=== PATIENT | female | born 1970 | race Two or more races ===

== ENCOUNTER 2016-09-08 12:21 | Day surgery (SDC) | payer OTHER ==
[~2016-09-08] VITALS: Ht 160 cm; Wt 70.8 kg
[2016-09-08 14:19] VITALS: Ht 160 cm; Wt 70.8 kg
[2016-09-08] MEDS ORDERED: SERT-165 PO (14:36)
[2016-09-08] MEDS ORDERED: DOLU50TA PO (14:36)
[2016-09-08] MEDS ORDERED: ATAZ1TAB PO (14:36)
[2016-09-08] MEDS ORDERED: [UNRECOGNIZED DRUG - CODE] PO (14:36)
[2016-09-08] MEDS ORDERED: ONDA4TAB95 PO (14:36)
[2016-09-08] MEDS ORDERED: MULTI PO (14:36)
[2016-09-08] MEDS ORDERED: FENO145T19 PO (14:36)
[2016-09-08] MEDS ORDERED: HYOS0.1212 SL (14:36)
[2016-09-08] MEDS ORDERED: FOLI-49 PO (14:36)
[2016-09-08] MEDS ORDERED: LIDO20SO19 MM (14:36)
[2016-09-08] MEDS ORDERED: HYDR-3011 PO (14:36)
[2016-09-08] MEDS ORDERED: TRAZ50TA18 PO (14:36)
[2016-09-08] MEDS ORDERED: [UNRECOGNIZED DRUG - OTHER] (14:36)
[2016-09-08] MEDS ORDERED: ERGO400T4 PO (14:36)
[2016-09-08] MEDS ORDERED: OMEP40CA6 PO (14:36)
[2016-09-08] MEDS ORDERED: [UNRECOGNIZED DRUG - CODE] MM (14:36)
[2016-09-08] MEDS ORDERED: LISI-313 PO (14:36)
[2016-09-08] MEDS ORDERED: HYDR-3027 PO (14:36)
[2016-09-08] MEDS ORDERED: METO-429 PO (14:36)
[2016-09-08 14:58] VITALS: BP 122/81; PULSE 67; RESP 20
[2016-09-08] MEDS ORDERED: MIDAZOLAM 1 MG/ML 2 ML INJ ONE (15:57)
[2016-09-08] MEDS ORDERED: FENTAnyl 50 MCG/ML VIAL ONE (15:57)
[2016-09-08] MEDS ORDERED: PROPOFOL 20 ML ONE (15:57)
--- NOTE | 2016-09-10 10:09 | GILP ---
DATE OF PROCEDURE: 09/08/2016 PROCEDURE: Esophagogastroduodenoscopy with biopsies. SURGEON: Elisa Collins MD BRIEF HISTORY AND INDICATIONS: The patient is being evaluated for abdominal pain. PREMEDICATION: Monitored anesthesia care by anesthesiologist. INSTRUMENT USED: Olympus panendoscope. TECHNIQUE: After informed consent, with the patient/relatives understanding the procedure, its indic ations, potential risks and complications, including but not limited to: allergic reaction, bleeding , perforation or infection, and after all pertinent questions were answered to the patients satisfac tion, the patient/relatives signed witnessed informed consent. Following this, premedication was ad ministered slowly IV push under careful cardiovascular and respiratory monitoring with pulse oximetr y, automatic blood pressure and products mechanical design engineer. Once the sedative effect was achieved the patient was place in the left lateral decubitus, the panendoscope was introduced and advanced under visual contr ol. Careful examination of the upper gastrointestinal tract, both on insertion as well as withdrawal of the instrument disclosed the following findings: ESOPHAGUS: The distal esophagus shows erythema and edema of the mucosa with superficial erosion. STOMACH: Upon entrance to the stomach, air was insufflated, the gastric smith distended normally. There is erythema and edema of the mucosa of a moderate degree. Biopsies were obtained to rule out H. pylori infection. PYLORUS: The pylorus appears patent and within normal limits, with no evidence of gastric outlet obs truction. DUODENUM: The duodenal mucosa was carefully examined in the duodenal bulb as well as the second por tion of the duodenum and appears unremarkable with no evidence of duodenitis, ulcer or neoplasm. The instrument was then withdrawn, the patient tolerated the procedure well and was transfer out of the endoscopy suite awake, and in good condition to continue recovery under observation IMPRESSION: 1. Erosive esophagitis. 2. Gastritis, rule out Helicobacter pylori infection. PLAN: The patient will be treated with PPIs. Pathology will be reviewed as soon as available. Fur ther recommendation will depend on patient's clinical course as well as review of biopsies. Dictated By: URBANO COLLINS MS/ROMA Conf#: [id number] DID#: [id number] CC: URBANO COLLINS;*EndCC*
--- NOTE | 2016-09-10 10:15 | GILP ---
DATE OF PROCEDURE: 09/08/2016 PROCEDURE: Colonoscopy with polypectomy. PREMEDICATION: Monitored anesthesia care by anesthesiologist. SURGEON: Urbano Collins MD. INSTRUMENT USED: Olympus colonoscope. PREPARATION: Adequate. TECHNIQUE: After informed consent, with the patient/relatives understanding the procedure, its indic ations potential risks and complications, including but not limited to: allergic reaction, bleeding, perforation, infection, missed lesions and after all pertinent questions were answered to the patie nt's satisfaction, the patient/relatives signed the witnessed informed consent. Following this, premedication was administered slowly IV push by under careful cardiovascular and re spiratory monitoring with pulse oximetry, automatic blood pressure and residential monitor. Once the sedativ e effect was achieved, the patient was placed in the left lateral decubitus position, digital rectal examination was performed. The colonoscope was then introduced and advanced under visual control th roughout all segments of the colon including: the rectum, sigmoid, descending colon, splenic flexure , transverse colon, hepatic flexure, ascending colon and finally reaching the cecum which was clearl y identified by transillumination, finger indentation and the ileocecal valve. Careful examination o f the mucosa of the lower gastrointestinal tract both on insertion as well as withdrawal of the inst rument disclosed the following findings: Rectal Examination: No evidence of perirectal disease, no masses. Colonic Mucosa: The colonic mucosa is remarkable for mild diverticulosis on the left side of the co marty. An 8 mm polyp was noted in the sigmoid colon which was snared and retrieved upon completion of examination and withdrawal of instrument. The ileocecal valve was reached and appears unremarkable. The instrument was withdrawn. On withdrawal of the instrument, no additional abnormalities are note d with the exception of moderate size internal hemorrhoids. The patient tolerated the procedure well and was transferred out of the Endoscopy Suite awake and in good condition to continue recovery under observation. IMPRESSION: 1. Mild diverticulosis. 2. An 8 mm pedunculated polyp in the sigmoid colon, snared and retrieved. 3. Moderate sized internal hemorrhoids. PLAN: The patient will follow up as an outpatient. Pathology will be reviewed as soon as available . Further recommendation will depend on her clinical course as well as review of biopsies. Surveil lizbet colonoscopy in 5 years is recommended. Annual Hemoccult stool testing is also recommended. Dictated By: URBANO COLLINS MS/NTS Conf#: [id number] [facility]#: [id number]
== END 2016-09-08 18:25 | disposition home or self-care (01) ==
LOC: GIL 12:21
PROVIDERS: ATTEND Internal Medicine Gastroenterology
DX: K29.50 Unspecified chronic gastritis without bleeding (principal); K20.9 Esophagitis, unspecified; D12.5 Benign neoplasm of sigmoid colon; K64.8 Other hemorrhoids; K57.30 Diverticulosis of large intestine without perforation or abscess without bleeding; I10 Essential (primary) hypertension; E78.00 Pure hypercholesterolemia, unspecified; M81.0 Age-related osteoporosis without current pathological fracture; F32.9 Major depressive disorder, single episode, unspecified; F41.9 Anxiety disorder, unspecified
CPT/HCPCS: 43239; 43251; 88305; 88312; J2250; J3010; Z7610

== ENCOUNTER 2018-09-14 15:46 | Day surgery (SDC) | payer OTHER ==
[~2018-09-14] VITALS: Ht 160 cm; Wt 81.2 kg
[2018-09-14] VITALS (17 sets, daily range): BP systolic 100–137; BP diastolic 67–94; PULSE 61–90; RESP 10–20; Ht 160 cm; Wt 81.2 kg
[~2018-09-14 15:46] MED LIST: ATAZ1TAB PO; DOLU50TA PO; ERGO400T4 PO; FENO145T37 PO; FOLI-49 PO; HYDR-3027 PO; HYDR-843 PO; HYOS0.1297 SL; LIDO20SO19 MM; LISI-313 PO; METO-429 PO; MULTI PO; OMEP40CA6 PO; ONDA4TAB95 PO; SERT-165 PO; TRAZ-111 PO; [UNRECOGNIZED DRUG - CODE] MM; [UNRECOGNIZED DRUG - CODE] PO; [UNRECOGNIZED DRUG - OTHER]
--- NOTE | 2018-09-14 15:55 | HPN ---
Date/Time of Note Date/Time of Note DATE: 09/14/18 TIME: 15:55 Interval H&P Admission Note Pt. seen H&P reviewed: No system changes GARY MARQUEZ Sep 14, 2018 15:55
[2018-09-14] MEDS ORDERED: FENTAnyl 50 MCG/ML VIAL ONE ×2 (16:34→18:11)
[2018-09-14] MEDS ORDERED: CEFAZOLIN 1 GM INJ ONE (16:34)
[2018-09-14] MEDS ORDERED: ROPIVACAINE 0.5 % 30 ML VIAL ONE (16:34)
[2018-09-14] MEDS ORDERED: PROPOFOL 20 ML ONE (16:34)
[2018-09-14] MEDS ORDERED: MIDAZOLAM 1 MG/ML 2 ML INJ ONE (16:34)
[2018-09-14] MEDS ORDERED: ALEN40TA2 PO (16:53)
[2018-09-14] MEDS ORDERED: TOPI100T11 PO (16:53)
--- NOTE | 2018-09-14 16:59 | PREAC ---
Date/Time of Note Date/Time of Note DATE: 09/14/18 TIME: 16:56 Anesthesia Eval and Record Evaluation Time Pre-Procedure Interview DATE: 09/14/18 TIME: 16:56 Age 48 Sex female NPO: 8 hrs Preoperative diagnosis Left Distal Radius Fracture Planned procedure Left Distal Radius ORIF and Carpal tunnel release Past Medical History Past Medical History: Includes Cardio: HTN, Dyslipidemia Pulm: Smoking Hx (2 cigarette/day) GI: GERD Infection(s): HIV Surgery & Anesthesia Issues No known issue Meds Anticoagulation: No Beta Noble within 24 hr: No Reason Beta Noble not given: Pt. not on B-Noble Reported Medications Topiramate* (Topiramate*) 100 Mg Tablet, 100 MG PO QPM, TAB 09/14/18 Alendronate Sodium* (Alendronate Sodium*) 40 Mg Tablet, 70 MG PO WEEKLY, #30 TAB 09/14/18 Hydroxyzine Hcl* (Hydroxyzine Hcl*) 25 Mg Tablet, 25 MG PO TID, #30 TAB 09/08/16 Hyoscyamine Sulfate* (Hyoscyamine Sulfate*) 0.125 Mg Tab.subl, 0.125 MG SL Q4H PRN for ANXIETY, TAB 09/08/16 Atazanavir Sulfate/Cobicistat (Evotaz 300 mg-150 mg Tablet) 1 Each Tablet, 1 EACH PO, TAB 09/08/16 Dolutegravir Sodium (Tivicay) 50 Mg Tablet, 50 MG PO DAILY, TAB 09/08/16 Sertraline Hcl* (Sertraline Hcl*) 100 Mg Tablet, 100 MG PO DAILY MDD 2 TABS, #30 TAB 09/08/16 Trazodone Hcl* (Trazodone Hcl*) 50 Mg Tablet, 50 MG PO QHS, #30 TAB 09/08/16 Fenofibrate Nanocrystallized* (Fenofibrate*) 145 Mg Tablet, 150 MG PO DAILY, TAB 09/08/16 Calcium Phosphate Trib/Vit D3 (CALCIUM-VITAMIN D3 GUMMIES) 1 Each Tab.chew, 1 EACH PO, TAB.CHEW 09/08/16 Omeprazole* (Omeprazole*) 40 Mg Capsule.dr, 40 MG PO DAILY, #30 CAP 09/08/16 Discontinued Reported Medications Lidocaine (Lidocaine Viscous) 100 Ml Soln, 100 ML MM 09/08/16 Lidocaine Hcl (Lidocaine Hcl) 5 Ml Jel.pf.lucian, 5 ML MM 09/08/16 Ondansetron Hcl* (Ondansetron Hcl*) 4 Mg Tablet, 4 MG PO Q8, TAB 09/08/16 Hydrocodone Bit/Acetaminophen (Vicodin HP 10-300) 1 Each Tablet, 1 TAB PO Q4H PRN for PAIN, TAB 09/08/16 [Probiotic Suppliment] No Conflict Check 09/08/16 Lisinopril* (Lisinopril*) 5 Mg Tablet, 5 MG PO DAILY, #30 TAB 09/08/16 Folic Acid* (Folic Acid*) 1 Mg Tablet, 1 MG PO DAILY, TAB 09/08/16 Ergocalciferol (Vitamin D2) 400 Unit Tablet, 400 UNIT PO DAILY, TAB 09/08/16 Multivitamins* (Theragran*) 1 Tab Tab, 1 TAB PO DAILY, TAB 09/08/16 Metoprolol Tartrate* (Lopressor*) 50 Mg Tab, 50 MG PO BID, #60 TAB 09/08/16 Current Medications Lactated Ringer's 1,000 ml @ 0 mls/hr Q0M IV* ; Start 09/14/18 at 17:00; Stop 09/14/18 at 23:00 Cefazolin Sodium/ Dextrose 50 ml @ 100 mls/hr PRE-OP IVPB ; Start 09/14/18 at 17:00 Meds reviewed: Yes Allergies Coded Allergies: No Known Drug Allergies (Verified Allergy, Unknown, 09/08/16) Allergies Reviewed: Yes Labs/Studies Labs Reviewed: Reviewed by anesthesiologist test: Negative Studies: ECG (NSR), CXR (no active disease) Pre-procedure Exam Last vitals Vital Signs Date Temp Pulse Resp B/P (MAP) Pulse Ox O2 O2 Flow FiO2 Time Delivery Rate 09/14/18 96.3 61 16 100/75 97 Room Air 16:36 (83) Airway: Adequate mouth opening, Adequate thyromental dist Mallampati: Mallampati II Teeth: Normal Lung: Normal Heart: Normal ASA Physical Status ASA physical status: 3 Emergency: None Planned Anesthetic General/MAC: LMA Nerve block: Brachial plexus (left) Planned Pain Management Single shot nerve block, Parenteral pain med Pre-operative Attestations Prior to commencing anesthesia and surgery, the patient was re-evaluated, there was verification of: *The patient's identity *The results of appropriate recent lab work and preoperative vital signs *The above evaluation not changing prior to induction *Anesthetic plan, risk benefits, alternative and complications discussed with patient/family; questions answered; patient/family understands, accepts and wishes to proceed. SONY PRABHAKAR MD Sep 14, 2018 16:59
[2018-09-14] MEDS ORDERED: FENTAnyl 50 MCG/ML VIAL IV PRN ×2 (17:00)
[2018-09-14] MEDS ORDERED: CEFAZOLIN 2 GM/50 ML (PMX) 50 ML IVPB SCH (17:00)
[2018-09-14] MEDS ORDERED: METOCLOPRAMIDE 10 MG INJ IV PRN (17:00)
[2018-09-14] MEDS ORDERED: ONDANSETRON 4 MG INJ IV PRN (17:00)
[2018-09-14] MEDS ORDERED: OXYCODONE/ACETAMINOPHEN (5/325) TAB PO PRN (17:00)
[2018-09-14] MEDS ORDERED: EPHEDrine SULFATE 50 MG/5 ML SYG IV PRN (17:00)
[2018-09-14] MEDS ORDERED: MEPERIDINE 25 MG INJ IV PRN (17:00)
[2018-09-14] MEDS ORDERED: LABETALOL HCL 20MG INJ IV PRN (17:00)
[2018-09-14] MEDS ORDERED: HYDROmorphONE 1 MG/5 ML IV SYRINGE IV PRN ×2 (17:00)
[2018-09-14] MEDS ORDERED: DIPHENHYDRAMINE 50 MG INJ IV PRN (17:00)
[2018-09-14] MEDS ORDERED: hydrALAzine 20 MG INJ IV PRN (17:00)
[2018-09-14] MEDS ORDERED: LACTATED RINGER'S 1,000 ML IV* SCH (17:00)
[2018-09-14] MEDS ORDERED: ONDANSETRON 4 MG INJ ONE (17:48)
[2018-09-14] MEDS ORDERED: EPHEDrine 25 MG/5 ML SYG ONE (17:48)
[2018-09-14] MEDS ORDERED: KETOROLAC 30 MG INJ ONE (17:48)
[2018-09-14] MEDS ORDERED: METOCLOPRAMIDE 10 MG INJ ONE (17:48)
[2018-09-14] MEDS ORDERED: DEXAMETHASONE 4 MG/ML 5 ML INJ ONE (17:48)
--- NOTE | 2018-09-14 18:16 | OPPN ---
Date/Time of Note Date/Time of Note DATE: 09/14/18 TIME: 18:15 Operative Report Preoperative Diagnosis left distal radius fracture, intra-articular, greater than 3 fragments left carpal tunnel syndrome Postoperative Diagnosis left distal radius fracture, intra-articular, greater than 3 fragments left carpal tunnel syndrome Operation/Procedure Performed left distal radius fracture, intra-articular, greater than 3 fragments ORIF left carpal tunnel release, open left wrist brachioradialis tendon lengthening Surgeon see signature line child development assistant none Anesthesia: general Estimated blood loss: 0 - 10 ml's Transfusion Required none Specimen none Grafts/Implants none Complications none GARY MARQUEZ Sep 14, 2018 18:16
--- NOTE | 2018-09-14 18:26 | PAC ---
Date/Time of Note Date/Time of Note DATE: 09/14/18 TIME: 18:25 Post-Anesthesia Notes Post-Anesthesia Note Last documented vital signs Vital Signs Date Temp Pulse Resp B/P (MAP) Pulse Ox O2 O2 Flow FiO2 Time Delivery Rate 09/14/18 96.3 61 16 100/75 97 Room Air 18:36 (83) Activity: WNL Respiratory function: WNL Cardiovascular function: WNL Mental status: Baseline Pain reasonably controlled: Yes Hydration appropriate: Yes Nausea/Vomiting absent: Yes SONY PRABHAKAR MD Sep 14, 2018 18:25
[2018-09-14] MEDS: FENTAnyl 50 MCG/ML VIAL IV PRN ×2 (18:34→18:49)
[2018-09-14] MEDS: HYDROmorphONE 1 MG/5 ML IV SYRINGE IV PRN ×2 (18:35→18:48)
--- NOTE | 2018-09-14 18:41 | OPR ---
DATE OF OPERATION: 09/14/2018 SURGEON: Gary Garcia MD ANESTHESIA: General. PREOPERATIVE DIAGNOSES: 1. Left distal radius fracture, intra-articular, greater than 3 fragments. 2. Left carpal tunnel syndrome. POSTOPERATIVE DIAGNOSES: 1. Left distal radius fracture, intraarticular, greater than 3 fragments. 2. Left carpal tunnel syndrome. PROCEDURES: 1. Open reduction and internal fixation, left distal radius fracture, intra-articular, greater than 3 fragments. 2. Left carpal tunnel release, open. 3. Lengthening of the left wrist brachioradialis tendon. OPERATIVE FINDINGS: Intra-articular comminuted left distal radius fracture with displacement and irr educibility on the radial aspect with swelling in the carpal canal. INDICATION FOR PROCEDURE: A 48-year-old female with injury to left wrist who was seen in clinic and diagnosed with displaced distal radius fracture. There is also concern for carpal tunnel syndrome. We discussed the options and the patient elected to proceed with surgical intervention, understanding risks and benefits. DESCRIPTION OF PROCEDURE: The patient was seen in the preoperative area and all further questions we re answered. Again, she gave informed consent understanding risks and benefits. She was taken to op erative suite and placed in supine position. She was placed under general anesthesia and Ancef 2 gra ms IV were given. Tourniquet was placed in the left upper extremity and left upper extremity was pre pped with ChloraPrep stick and draped in usual sterile fashion. Esmarch bandage was used to exsangui sean the extremity and tourniquet was inflated to 250 mmHg. Attention was first turned distal radius in a modified volar Melvin approach to the distal radius was utilized with sharp dissection carried d own through skin and subcutaneous tissue. The FCR sheath was incised and FCR tendon was retracted ul narly. The FCR subsheath was incised and FPL tendon was retracted ulnarly. The pronator quadratus w as elevated off its radial and distal borders and the fracture site was identified. The fracture was difficult to reduce and was translated radially and dorsally. A lengthening of the brachioradialis tendon at the wrist was performed using a 15-blade knife and Bovie electrocautery. After lengthening of the brachioradialis tendon, I was able to reduce the fracture into a more anatomic alignment. A [employer] volar distal radius plate was placed across the fracture site and cortical and locking screw s were placed proximally and distally. X-ray imaging showed appropriate hardware placement and bony alignment. Wound was copiously irrigated. Skin was closed with 4-0 nylon. Attention was turned to the carpal tunnel and a 2 cm incision at the base of the palm was utilized with sharp dissection harvey ied down through skin and subcutaneous tissue. The palmar aponeurosis was incised along its ulnar martha rder and retractors were deepened. The transverse carpal ligament was divided along its ulnar border approximately 3 mm radial to the hook of the hamate. Retraction was placed proximally and distally and proximal and distal to the transverse carpal ligament were divided under direct visualization. W ound was copiously irrigated and skin was closed with 4-0 nylon. Xeroform was placed in the wound fo llowed by sterile gauze, Webril and a short arm splint. Tourniquet was deflated after 32 minutes. T he patient was awakened from anesthesia. She was taken in the postoperative suite in stable conditio n, tolerated procedure well without complication. SPECIMENS: None. ESTIMATED BLOOD LOSS: 5 mL. COUNTS: Sponge, instrument, needle counts were correct. TOURNIQUET TIME: 32 minutes. CONDITION ON DISCHARGE: Stable. The patient was given a nonrefillable 5-day prescription for pain medication for surgery today. Dictated By: GARY PIERRE/ROMA Conf#: [id number] DID#: [id number]
[2018-09-14] MEDS: OXYCODONE/ACETAMINOPHEN (5/325) TAB PO PRN ×2 (18:56→19:28)
== END 2018-09-14 19:55 | disposition home or self-care (01) ==
LOC: SDS 15:46
PROVIDERS: ATTEND Orthopaedic Surgery Hand Surgery
DX: S52.572D Other intraarticular fracture of lower end of left radius, subsequent encounter for closed fracture with routine healing (principal); X58.XXXD Exposure to other specified factors, subsequent encounter; G56.02 Carpal tunnel syndrome, left upper limb; I10 Essential (primary) hypertension; E78.5 Hyperlipidemia, unspecified; F17.200 Nicotine dependence, unspecified, uncomplicated
CPT/HCPCS: 64721; 73110; C1713; J0690; J1100; J1170; J1885; J2175; J2250; J2405; J2765; J2795; J3010; Z7512; Z7610